=== PATIENT | female | born 1965 | race Hispanic/Latino ===

== ENCOUNTER 2018-11-13 09:04 | Inpatient (IN) ==
[2018-11-13] MEDS ORDERED: ASPIRIN PO ONE (09:24)
[2018-11-13] MEDS ORDERED: ASPIRIN PR ONE (09:24)
--- NOTE | 2018-11-13 09:49 | EKG Report ---
Test Performed on : 11/13/2018 09:13:34 AM Test Reason : CP Blood Pressure : / mmHG Vent. Rate : 066 BPM Atrial Rate : 066 BPM P-R Int : 136 ms QRS Dur : 082 ms QT Int : 424 ms P-R-T Axes : 054 021 034 degrees QTc Int : 444 ms Normal sinus rhythm. T wave abnormality, consider anterior ischemia Abnormal ECG When compared with ECG of 30-MAR-2017 17:04, No significant change was found Confirmed by Rissa SEALS, Tito Perales ([id number]) on 11/13/2018 7:29:52 PM
[2018-11-13 09:50] LABS: BASO# 0.03 X1000 (0.0-0.2); BASO% 0.5 % (0.0-0.8); EOS# 0.14 X1000 (0.0-0.7); EOS% 2.4 % (0.0-10.0); HEMATOCRIT 30.9 % (37.0-47.0); HEMOGLOBIN 9.4 g/dL (12.0-16.0); LYMPH# 2.34 X1000 (1.2-3.4); LYMPH% 39.7 % (20.5-51.1); MCHC 30.4 g/dL (33-37); MCV 72.2 FL (81-99); MONO# 0.55 X1000 (0.11-0.59); MONO% 9.3 % (1.7-9.3); MPV 8.9 FL (7.4-10.4); NEUT# 2.83 X1000 (1.4-6.5); NEUT% 48.1 % (42.2-75.2); PLT 465 X1000 (130-400); RBC 4.28 XMIL (4.2-5.4); WBC 5.89 X1000 (4.8-10.8)
[2018-11-13 09:52] LABS: INR 0.91; PROTIME 12.9 Seconds (11.0-16.0)
--- NOTE | 2018-11-13 10:02 | Diag Imaging Result Doc PS360 ---
EXAM: CHEST-2 VIEWS HISTORY: CP TECHNIQUE: Chest two views COMPARISON: None. FINDINGS: The lungs are well expanded. The heart is not enlarged. The vessels are not distended. There are no infiltrates. No pleural effusions. IMPRESSION: No acute abnormality. Electronically signed by Vitor Michele 11/13/2018 9:59 AM
[2018-11-13 10:31] LABS: AGAP 15; ALB/GLOB RATIO 1.2; ALBUMIN 4.2 g/dL (3.5-5.0); ALKALINE PHOSPHATASE 68 U/L (32-104); BUN 19 mg/dL (8-22); CALCIUM 9.2 mg/dL (8.8-10.2); CHLORIDE 99 mmol/L (98-107); COSMO 282; CREATININE 0.5 mg/dL (0.5-0.9); ESTIMATED GFR > 60; GLUCOSE 131 mg/dL (70-104); GOT 29 U/L (10-30); GPT 20 U/L (10-36); POTASSIUM 3.2 mmol/L (3.5-5.1); SODIUM 139 mmol/L (136-145); TCO2 25 mmol/L (25-35); TOTAL BILIRUBIN 0.23 mg/dL (0.20-1.00); TOTAL PROTEIN 7.8 g/dL (6.3-8.3)
[2018-11-13 10:34] LABS: CK PROFILE 488 U/L (24-173)
--- NOTE | 2018-11-13 12:01 | EKG Report ---
Test Performed on : 11/13/2018 11:37:22 AM Test Reason : repeat Blood Pressure : / mmHG Vent. Rate : 058 BPM Atrial Rate : 058 BPM P-R Int : 158 ms QRS Dur : 084 ms QT Int : 472 ms P-R-T Axes : 049 016 030 degrees QTc Int : 463 ms Sinus bradycardia. Nonspecific T wave abnormality Prolonged QT Abnormal ECG When compared with ECG of 13-NOV-2018 09:13, (Unconfirmed) T wave inversion no longer evident in Anterior leads Unconfirmed Result
[2018-11-13] MEDS ORDERED: ZOFRAN IV PRN (14:06)
[2018-11-13] MEDS ORDERED: NITROGLYCERIN SL PRN (14:06)
[2018-11-13] MEDS ORDERED: KLOR-CON PO ONE (14:17)
--- NOTE | 2018-11-13 14:41 | PROVIDER DOCUMENTATION ---
This chart was entered by Saniya Gu Scribe, acting as scribe for Gabe García MD. HPI-Chest Pain - General Chief Complaint: Chest Pain Stated Complaint: clinic sent for breathing/heart related Time Seen by Provider: 11/13/18 09:25 Source: social research assistant Allergies/Adverse Reactions: Patient Allergies Allergy/AdvReac Type Severity Reaction Status Date / Time No Known Allergies Allergy Verified 11/13/18 09:45 Home Medications: Home Medication List Medication Instructions Recorded Confirmed Last Taken Type Escitalopram Oxalate [Lexapro] 10 mg PO DAILY 11/13/18 11/13/18 Unknown History RX: Lisinopril 20 mg PO DAILY 11/13/18 11/13/18 Unknown History - History of Present Illness-CP Nature of Presenting Problem: Patient is a 53 year old female who presents with left side chest pain that radiates to left arm that has been presents for 3 days. [employer] Advanced Operator Maintainer states patient stated shortness of breath, diaphoresis, and nausea with pain. Patient denies vomiting. Location: reports: other (left side) Chest Pain Radiation: reports: arms (left) Quality of Pain: reports: sharp Severity in ED: mild Onset/Duration: 3 days ago Timing: still present, constant Modifying Factors: worse with: breathing, movement Associated Symptoms: reports: diaphoresis, nausea, shortness of breath Similar Symptoms Previously?: Yes Recently Seen Here or By Another Healthcare Provider: No Review of Systems - Adult - REVIEW OF SYSTEMS - ADULT Constitutional: reports: no symptoms reported. denies: chills, fever, fatique Eyes: reports: blurred vision. denies: decreased vision, double vision Ears, Nose, Mouth & Throat: reports: no symptoms reported Cardiovascular: reports: see HPI, chest pain, palpitations. denies: heart murmur Respiratory: reports: see HPI, shortness of breath. denies: cough, wheezing Gastrointestinal: reports: see HPI, nausea. denies: abdominal pain, diarrhea, vomiting Genitourinary: reports: no symptoms reported Musculoskeletal: reports: no symptoms reported Integumentary: reports: no symptoms reported Neurological: reports: numbness (bilateral hands. right worse than left.). denies: dizziness/vertigo, headache/migraines, paresthesia, syncope Psychiatric: reports: no symptoms reported Endocrine: reports: no symptoms reported Hematologic/Lymphatic: reports: no symptoms reported Allergic/Immunologic: reports: no symptoms reported All Other Systems: Reviewed and Negative Past History - Adult - PAST MEDICAL HISTORY-ADULT Review of Records: reports: Old Records Reviewed, Nursing Assessment Review, Medications Reviewed, Social history reviewed & non-contributory. Major Childhood Illnesses: reports: denies history Cardiovascular: reports: HTN Respiratory: reports: denies history Gastrointestinal: reports: denies history Obstetrical/Gynecological: reports: denies history Genitourinary: reports: denies history Musculoskeletal: reports: denies history Neurological: reports: denies history Psychiatric: reports: depression Endocrine/Immune: reports: denies history Other Conditions: reports: denies history - PRIOR SURGERIES/PROCEDURES Surgical/Procedure History: reports: reviewed, not pertinent - IMMUNIZATION STATUS Childhood Immunizations: See Nurse Assessment Flu Vaccine: See Nurse Assessment - FAMILY HISTORY Family History: reviewed, not pertinent - SOCIAL HISTORY Smoking: denies Substance Use: denies Physical Exam-General - PHYSICAL EXAM-ADULT Initial Vital Signs Reviewed: Yes - CONSTITUTIONAL General Appearance: alert, no apparent distress. negative: lethargic, slow to respond - EYES Eyes: PERRL/EOMI. negative: scleral icterus, sunken eyes - HEAD, EARS, NOSE, MOUTH & THROAT HENMT: normocephalic/atraumatic, moist mucous membranes, pharynx normal. negative: angioedema, hearing deficit - RESPIRATORY Respiratory: lungs clear, normal breath sounds, other (left parasternal chest wall tenderness). negative: crackles, rhonchi, wheezing - CARDIOVASCULAR Cardiovascular: normal peripheral pulses, regular rate, rhythm. negative: tachycardia, systolic murmur - GASTROINTESTINAL (ABDOMEN) Abdominal Exam: normal bowel sounds, soft, tenderness (RLQ). negative: guarding, rebound - MUSCULOSKELETAL Extremity: non-tender, normal inspection. negative: deformity, erythema, swelling - SKIN Integumentary: normal color, normal turgor, warm/dry. negative: cyanosis, ecchymosis, erythema, jaundice - NEUROLOGIC Neurologic: grossly normal. negative: aphasia, facial droop - PSYCHIATRIC Psych/Mental Status: normal mood/affect. negative: anxious, paranoid Progress - PLAN OF CARE/RESULTS Progress/Plan/Lab Results: Vital Signs - 8 hr 11/13/18 09:11 Temperature 99.1 F Pulse Rate 72 Respiratory Rate 20 Blood Pressure 147/97 O2 Sat by Pulse Oximetry 98 Laboratory Results - last 24 hr 11/13/18 11/13/18 11/13/18 09:25 09:25 09:25 WBC 5.89 RBC 4.28 Hgb 9.4 L Hct 30.9 L MCV 72.2 L MCH 22.0 L MCHC 30.4 L RDW Std Deviation 17.0 H Plt Count 465 H MPV 8.9 Immature Gran % (Auto) 0.0 Neut % (Auto) 48.1 Lymph % (Auto) 39.7 [place] % (Auto) 9.3 Eos % (Auto) 2.4 Baso % (Auto) 0.5 Immature Gran # (Auto) 0.00 Neut # (Auto) 2.83 Lymph # (Auto) 2.34 [place] # (Auto) 0.55 Eos # (Auto) 0.14 Baso # (Auto) 0.03 PT INR PTT (Actin FS) Sodium 139 Potassium 3.2 L Chloride 99 Carbon Dioxide 25 Anion Gap 15 BUN 19 Creatinine 0.5 Estimated GFR/1.73 m2 > 60 BUN/Creatinine Ratio 38 Glucose 131 H Calculated Osmolality 282 Calcium 9.2 Total Bilirubin 0.23 AST 29 ALT 20 Alkaline Phosphatase 68 Creatine Kinase 488 H Creatine Kinase Index 1.0 CK-MB (CK-2) 5.10 H Troponin T Qsq-R-[id number] Pept 29 Total Protein 7.8 Albumin 4.2 Globulin 3.6 Albumin/Globulin Ratio 1.2 11/13/18 11/13/18 11/13/18 09:25 09:25 11:45 WBC RBC Hgb Hct MCV MCH MCHC RDW Std Deviation Plt Count MPV Immature Gran % (Auto) Neut % (Auto) Lymph % (Auto) [place] % (Auto) Eos % (Auto) Baso % (Auto) Immature Gran # (Auto) Neut # (Auto) Lymph # (Auto) [place] # (Auto) Eos # (Auto) Baso # (Auto) PT 12.9 INR 0.91 PTT (Actin FS) 32.0 Sodium Potassium Chloride Carbon Dioxide Anion Gap BUN Creatinine Estimated GFR/1.73 m2 BUN/Creatinine Ratio Glucose Calculated Osmolality Calcium Total Bilirubin AST ALT Alkaline Phosphatase Creatine Kinase Creatine Kinase Index CK-MB (CK-2) Troponin T < 0.010 < 0.010 Rqs-S-Tdacjptcedp Pept Total Protein Albumin Globulin Albumin/Globulin Ratio Orders Category Date Time Status Admit - [facility] Routine AdmDCTranf 11/13/18 14:06 Active Apply Mechanical Device [QM] ORDERED Care 11/13/18 14:06 Active Cardiac Monitoring DIRECTED Care 11/13/18 09:24 Active DVT/PE Risk Assess/Protocol [QM] ORDERED Care 11/13/18 14:06 Active Notify MD if DIRECTED Care 11/13/18 14:06 Active Oxygen Therapy- ED Nursing DIRECTED Care 11/13/18 09:24 Active Saline Loc DIRECTED Care 11/13/18 14:06 Active Saline Loc NOW Care 11/13/18 09:24 Active Vital Signs Order Q 4-HR ASSESS Care 11/13/18 14:06 Active Z-Document. for Tele Applied ORDERED Care 11/13/18 14:07 Active Heart Healthy Diet Diet 11/13/18 14:07 Active NPO Diet 11/14/18 00:01 Active CHEST-2 VIEWS [RAD] Stat Exams 11/13/18 09:24 Completed MYOCARDIAL PERF SCAN, STR/REST [NM] Routine Exams 11/14/18 07:00 Ordered MYOCARDIAL PERF SCAN, STR/REST [NM] Routine Exams 11/15/18 07:00 Ordered A1C HGB W EST AVG GLUCOSE [CHEM] Routine Lab 11/14/18 06:00 Ordered BASIC METABOLIC PANEL [CHEM] Routine Lab 11/14/18 06:00 Ordered CBC WITH ELECTRONIC DIFF [HEME] Routine Lab 11/14/18 06:00 Ordered CBC WITH ELECTRONIC DIFF [HEME] Stat Lab 11/13/18 09:25 Completed CK PROFILE [SP CHEM] Q8H Lab 11/13/18 14:15 Ordered CK PROFILE [SP CHEM] Q8H Lab 11/13/18 22:15 Ordered CK PROFILE [SP CHEM] Q8H Lab 11/14/18 06:15 Ordered CK PROFILE [SP CHEM] Stat Lab 11/13/18 09:25 Completed COMPREHENSIVE METABOLIC PANEL [CHEM] Stat Lab 11/13/18 09:25 Completed FOLATE Routine Lab 11/14/18 06:00 Ordered FREE T4 Routine Lab 11/14/18 06:00 Ordered LIPID PROFILE W/CALC LDL [LIPIDS] Routine Lab 11/14/18 06:00 Ordered MAGNESIUM [CHEM] Routine Lab 11/14/18 06:00 Ordered PHOSPHORUS [CHEM] Routine Lab 11/14/18 06:00 Ordered PRO B-NATRIURETIC PEPTIDE Stat Lab 11/13/18 09:25 Completed PROTIME WITH INR [COAG] Routine Lab 11/14/18 06:00 Ordered PROTIME WITH INR [COAG] Stat Lab 11/13/18 09:25 Completed PTT [COAG] Routine Lab 11/14/18 06:00 Ordered PTT [COAG] Stat Lab 11/13/18 09:25 Completed TROPONIN T Q8H Lab 11/13/18 14:15 Ordered TROPONIN T Q8H Lab 11/13/18 22:15 Ordered TROPONIN T Q8H Lab 11/14/18 06:15 Ordered TROPONIN T Stat Lab 11/13/18 09:25 Completed TROPONIN T Stat Lab 11/13/18 11:45 Completed TSH Routine Lab 11/14/18 06:00 Ordered VITAMIN B12 Routine Lab 11/14/18 06:00 Ordered Acetaminophen [Tylenol] Med 11/13/18 14:06 Active 650 mg PO Q6H PRN PRN Aspirin Med 11/13/18 09:24 Discontinued 300 mg SC NOW ONE Aspirin Med 11/14/18 09:00 Active 325 mg PO DAILY Aspirin Med 11/13/18 09:24 Discontinued 325 mg PO NOW ONE Nitroglycerin Sl [Nitroglycerin] Med 11/13/18 14:06 Active 0.4 mg SL Q5M PRN PRN Omeprazole [Prilosec] Med 11/14/18 07:00 Active 20 mg PO DAILY@0700 Ondansetron [Zofran] Med 11/13/18 14:06 Active 4 mg IV Q4H PRN PRN Potassium Chloride E.r. [Klor-Con] Med 11/13/18 14:17 Discontinued 40 meq PO NOW ONE CP/SOB/Palp >45 yrs of Age Stat Oth 11/13/18 09:24 Ordered Oxygen Device Routine Oth 11/13/18 14:06 Active Telemetry [OM.EQ] Routine Oth 11/13/18 14:06 Active EKG [EKG] Q8H Ther 11/13/18 14:06 Ordered EKG [EKG] Q8H Ther 11/13/18 22:06 Ordered EKG [EKG] Q8H Ther 11/14/18 06:06 Ordered EKG [EKG] Routine Ther 11/14/18 07:00 Ordered EKG [EKG] Stat Ther 11/13/18 09:24 Draft EKG [EKG] Stat Ther 11/13/18 11:34 Draft Echo Spec/Color Doppler Routine Ther 11/13/18 14:06 Ordered Transfer/Admit Order [TRANSFER] Routine Transfer 11/13/18 14:19 Ordered Result Diagrams: 11/13/18 09:25 11/13/18 09:25 - EKG 1 Time of EKG reading by physician:: 09:13 EKG Read and Signed by:: Gabe García EKG Interpretation (*Must complete 3 of following elements*): Abnormal Rate: 66 Rhythm: normal sinus rhythm [place]: normal SC Interval: normal Comments: T wave abnormality, consider anterior ischemia 2 Time of EKG reading by physician:: 11:37 EKG Read and Signed by:: Gabe García EKG Interpretation (*Must complete 3 of following elements*): Abnormal Rate: 58 Rhythm: sinus bradycardia [place]: normal SC Interval: normal Comments: nonspecific T wave abnormality; prolonged QT - XRAY 1 XRAY Study: Chest Impression: See EMR Report (EXAM: CHEST-2 VIEWS HISTORY: CP TECHNIQUE: Chest two views COMPARISON: None. FINDINGS: The lungs are well expanded. The heart is not enlarged. The vessels are not distended. There are no infiltrates. No pleural effusions. IMPRESSION: No acute abnormality. Electronically signed by Vitor Michele 11/13/2018 9:59 AM 11/13/1859 Interpreting Physician: Vitor Michele MD Dictated Date/Time: 11/13/18 0959 cc: Gabe García MD; None,PCP) - CONSULTS/PCP/HOSPITALIST Notification #1 *Consult/PCP/Hospitalist*: CLIFFORD Arroyo for Hospitalist Time Discussed: 14:01 Reason/Comments: Dr. García consulted with Dina about patient. Consult Disposition: Will see in ED, Admit Departure - Departure Date of Disposition Decision: 11/13/18 Time of Disposition Decision: 14:02 DIAGNOSIS: Chest pain Disposition: ADMITTED INPATIENT 09 Certified Medical Emergency: Emergent Condition: Stable - Critical Care Note This patient required my direct & personal management of CC.: No Attestation - Physician/ SANAM Attestation Patient care was provided by Advanced Practice Provider:: No The physician spent face to face time with patient:: Yes Advanced Practice Provider documentation review:: Supervising physician onsite and consulted in the evaluation and care of this patient. The physician did have a face to face encounter with the patient. This chart was documented by the indicated scribe, (Saniya Gu Scribe) and accurately reflects the services I performed and decisions made by me, Gabe García MD, as attested by the provider's signature.
[2018-11-13 16:58] LABS: CK INDEX 1.1 (0.0-2.5); CK-MB 4.69 ng/mL (0.0-5.0)
[2018-11-13] MEDS: TYLENOL PO PRN (18:38)
[2018-11-13] MEDS: AMBIEN PO SCH (21:47)
[2018-11-13 23:01] LABS: CK INDEX 1.2 (0.0-2.5); CK-MB 4.84 ng/mL (0.0-5.0)
[2018-11-14] MEDS: PRILOSEC PO SCH (06:11)
[2018-11-14 06:28] LABS: INR 0.91; PTT 30.1 Seconds (22.3-41.8)
[2018-11-14 06:58] LABS: AGAP 7; BUN 18 mg/dL (8-22); CALCIUM 9.4 mg/dL (8.8-10.2); CHLORIDE 101 mmol/L (98-107); CHOLESTEROL 193 mg/dL (0-200); COSMO 279; CREATININE 0.6 mg/dL (0.5-0.9); ESTIMATED GFR > 60; GLUCOSE 99 mg/dL (70-104); HDL 62 mg/dL (45-65); MAGNESIUM 2.1 mg/dL (1.5-2.7); PHOSPHORUS 3.5 mg/dL (2.7-4.5); POTASSIUM 3.7 mmol/L (3.5-5.1); SODIUM 139 mmol/L (136-145); TCO2 31 mmol/L (25-35); TOTAL IRON 19 ug/dL (49-151); TRIGLYCERIDES 86 mg/dL (35-135); VLDL 17 mg/dL
[2018-11-14 06:59] LABS: LDL 114 mg/dL
[2018-11-14 07:02] LABS: BASO# 0.03 X1000 (0.0-0.2); BASO% 0.6 % (0.0-0.8); EOS% 3.9 % (0.0-10.0); HEMATOCRIT 32.8 % (37.0-47.0); HEMOGLOBIN 9.9 g/dL (12.0-16.0); LYMPH# 2.11 X1000 (1.2-3.4); LYMPH% 40.8 % (20.5-51.1); MCHC 30.2 g/dL (33-37); MCV 72.7 FL (81-99); MONO# 0.47 X1000 (0.11-0.59); MONO% 9.1 % (1.7-9.3); MPV 9.3 FL (7.4-10.4); NEUT# 2.36 X1000 (1.4-6.5); NEUT% 45.6 % (42.2-75.2); PLT 473 X1000 (130-400); RBC 4.51 XMIL (4.2-5.4); RDW 17.1 % (11.5-14.5); WBC 5.17 X1000 (4.8-10.8)
--- NOTE | 2018-11-14 07:07 | EKG Report ---
Test Performed on : 11/14/2018 06:46:42 AM Test Reason : chest pain Blood Pressure : / mmHG Vent. Rate : 061 BPM Atrial Rate : 061 BPM P-R Int : 154 ms QRS Dur : 082 ms QT Int : 424 ms P-R-T Axes : 064 036 040 degrees QTc Int : 426 ms Normal sinus rhythm. Normal ECG When compared with ECG of 13-NOV-2018 11:37, (Unconfirmed) No significant change was found Confirmed by Rissa SEALS, Tito Perales ([id number]) on 11/14/2018 3:27:39 PM
[2018-11-14 07:23] LABS: BASO 1 % (0-1); EOS 8 % (1-10); LYMPHS 24 % (21-51); MONO 9 % (1-9); SEGS 58 % (42-75)
[2018-11-14 07:25] LABS: HYPOCHROM 1+; MICROCYTOSIS 1+
[2018-11-14 07:31] LABS: HEMOGLOBIN A1C 5.8 % (4.8-6.0)
[2018-11-14 07:33] LABS: FREE T4 1.17 ng/dL (0.93-1.70); TSH 0.69 uIUmL (0.27-4.20)
[2018-11-14 07:38] LABS: CK INDEX 1.2 (0.0-2.5); CK-MB 4.23 ng/mL (0.0-5.0)
[2018-11-14] MEDS ORDERED: LEXISCAN ONE (08:52)
--- NOTE | 2018-11-14 10:28 | HISTORY AND PHYSICAL ---
PRIMARY CARE PHYSICIAN: None. CHIEF COMPLAINT: Chest pain. HISTORY OF PRESENT ILLNESS: This is a 53 -year-old female who presents to the emergency room with left sided chest pain that radiates down the left arm for 3 days. She states she does have some shortness of breath and some diaphoresis and nausea with this chest pain. She states this is a constant chest pain. She does not have any vomiting with this chest pain. She does have lots of shortness of breath with this chest pain. Patient speaks mostly Danish, does not speak any Turkish. Most of the history is obtained from the emergency room record where they used an shipwright supervisor to obtain history. Patient does not complain of pain anywhere else besides in the chest and left arm region. She does not complain of any back pain. At this present time patient states that she is having some pain in her arm and her chest area and she is complaining of a headache at this present time. PAST MEDICAL HISTORY: 1. Depression. 2. Hypertension. 3. Pelvic ultrasound from 09/04/2017 for some excessive bleeding that was negative. PAST SURGICAL HISTORY: Unable to be obtained at this time. FAMILY HISTORY: Not significant. SOCIAL HISTORY: Patient states that she does live here in [place]. Denies any alcohol, tobacco or illicit drug abuse. ALLERGIES: No known drug allergies. MEDICATIONS: 1. Lexapro 10 mg p.o. daily. 2. Lisinopril 20 mg p.o. daily. LABS AND DIAGNOSTICS: White blood cell count 5.89, hemoglobin 9.4, hematocrit 30.9. MCV 72.2, MCH 22.0, MCHC 30.4. RDW standard deviation is 17.0. Platelet count is 465,000. PT 12.9, INR 0.9. PTT 32.0. GFR is greater than 60. Glucose is 131. Calcium is 9.2. Bilirubin is 0.23. AST 29, ALT 20, alkaline phosphatase is 68. Creatinine kinase is 488. CK-MB 5.10, troponin is less than 0.01. Pro-BNP is 29. EKG done in the emergency room shows sinus bradycardia with a nonspecific T-wave abnormality and prolonged QT with a rate of 58 beats per minute. Chest x-ray shows no acute abnormality. REVIEW OF SYSTEMS: A 12 point review of systems was obtained and all is negative except what is stated above in the history of present illness. PHYSICAL EXAMINATION: VITAL SIGNS: Temperature 98.0 degrees, heart rate 64, respiratory rate is 18, blood pressure is 154/90, O2 saturation is 100% on room air. Weight is 134. Height is 5 feet. GENERAL: This is a well developed, well nourished 53 -year-old female in no acute distress, lying on an emergency room stretcher. HEENT: Atraumatic, normocephalic. Pupils equal, round, reactive to light. Mucous membranes are moist with no dentition. NECK: Supple, no lymphadenopathy. Trachea is midline. No JVD noted. CV: No murmurs, rubs or gallops. Regular rate and rhythm. RESPIRATORY: Lung sounds are clear. Equal chest excursion. Respirations are nonlabored. No accessory muscle usage. GI: Abdomen is soft, nontender, nondistended. Bowel sounds are present. NEURO: Alert, awake, oriented x 4. Cranial nerves intact. Follows all commands. MUSCULOSKELETAL: Full distal strength noted. No abnormalities. No deformities. EXTREMITIES: No cyanosis, clubbing or edema. DP and PT pulses are present. SKIN: Warm, dry, intact. No rashes or bruises noted. ASSESSMENT: 1. Chest pain. Rule out acute coronary syndrome/angina. 2. Hypertension. 3. Anemia. 4. Hypokalemia. PLAN: 1. We will admit this patient to the medical floor. 2. We will place the patient on telemetry. 3. We will restart her home medications. 4. We will repeat labs in the morning. 5. We will do serial CK and troponin and EKG's. 6. We will replace the potassium and recheck in the morning. 7. We will do a stress test in the morning and echo in the morning. 8. Place this patient on Healthy Heart Diet and place her NPO after midnight for stress test. 9. Control the patient's chest pain with p.r.n. medications. 10.Do a full anemia work up. Dictated by CLIFFORD Evans for Glenn Vasquez MD Addendum: Patient seen and examined by myself. Agree with CLIFFORD note. It reflects my assessment and plan. Patient is being admitted to hospital for chest pain. Will order an echocardiogram, Lexiscan test, trend troponins and will go from there. Will continue with home medications for hypertension. cc: Glenn Vasquez MD MTDD
[2018-11-14] MEDS: PRINIVIL PO SCH (12:05)
[2018-11-14] MEDS: LEXAPRO PO SCH (12:05)
[2018-11-14] MEDS: ASPIRIN PO SCH (12:05)
--- NOTE | 2018-11-14 16:05 | PROGRESS NOTE ---
DATE: 11/14/2018 SUBJECTIVE: The patient reports feeling fine. Chest pain is almost gone. OBJECTIVE: Vital Signs: Temperature 98.5, heart rate 62, respiratory rate 16, blood pressure 134/70, O2 saturation 100% on room air. General: This is a 53-year-old, male, lying in bed, in no acute distress. Cardiovascular: S1, S2 heard. No murmurs, gallops, or rubs. Regular rate and rhythm. Respiratory: Clear bilaterally to auscultation. No work of breathing or using accessory muscles. Abdomen: Soft. Nontender to palpation. Bowel sounds present. No organomegaly. Extremities: No clubbing, cyanosis, or edema. Peripheral pulses present in both legs. Neurological exam: The patient is alert and oriented x3. Moves 4 extremities. LABORATORY DATA: Reviewed and 3 sets of troponins are negative. ASSESSMENT AND PLAN: 1. Chest pain, rule out acute coronary syndrome. At this point, the patient has had an echo and also Lexiscan stress test which has not been read yet. We have checked troponins 3 times and those are normal, as well as CK/MB. I think at this point, even those exams mentioned above are negative, either at the end of the day or tomorrow morning, patient can be discharged. 2. Hypertension. Blood pressure is under control. We will continue with the same management. 3. Anemia of chronic disease. Stable. We will continue with same management. 4. Hypokalemia, resolved. cc: Glenn Vasquez MD
--- NOTE | 2018-11-14 16:46 | Diag Imaging Result Document ---
PROCEDURE NAME: MYOCARDIAL PERF SCAN, STR/REST - 11/14/2018 SUMMARY: The patient was administered 10.3 mCi of technetium-99m sestamibi, after which resting cardiac images were obtained. Patient was subsequently administered Lexiscan 0.4 mg intravenously, after which the heart increased from 70 beats per minute to 93 beats per minute. The blood pressure went from 179/85 to 154/85. With Lexiscan, the patient denied chest discomfort. Following the administration of Lexiscan, the patient was administered 31.8 mCi of technetium-99m sestamibi, after which gated stress cardiac images were obtained. Baseline ECG demonstrated sinus rhythm. With Lexiscan, there were no diagnostic ST-segment changes. SPECT images were reconstructed in the short, horizontal, and vertical long axis. Review of these images demonstrated no scintigraphic evidence of inducible myocardial ischemia or prior infarct. Gated images demonstrated a calculated left ventricular ejection fraction of 56% with symmetrical wall motion/thickening. CONCLUSIONS: 1. Adequate response to Lexiscan. 2. Clinically negative for chest pain. 3. Electrocardiographically negative for Lexiscan-induced myocardial ischemia. 4. Lexiscan sestamibi images demonstrate no scintigraphic evidence of inducible myocardial ischemia. Normal left ventricular systolic function demonstrated. cc: Anibal Murdock MD
[2018-11-14] MEDS: AMBIEN PO SCH (21:02)
--- NOTE | 2018-11-14 22:34 | ECHO REPORT ---
ORDER DATE: 11/13/2018 MEASUREMENTS: Septal thickness 0.9. Left ventricular internal diameter diastole 4.9. Left ventricular posterior wall thickness 0.9. Aortic root 3.0, left atrium 2.8. SUMMARY: 1. Fair quality study. 2. Aortic valve is not well imaged but appears to be probably trileaflet. Aortic valve opens adequately on 2-dimensional images. Peak gradient across aortic valve is 21 mmHg and appears to be increased due to dynamic left ventricular function. Mitral and tricuspid valves are without evidence of structural abnormality while pulmonic valve is not well demonstrated. There is trace mitral regurgitation and trace tricuspid regurgitation. Aortic root is normal in size. 3. Normal left ventricular dimensions demonstrated. Estimated left ejection fraction appears to be at least 60%. No regional wall motion abnormalities evident. Left atrium, right atrium, right ventricle normal in size with grossly preserved right ventricular systolic function. 4. No pericardial effusion. 5. Appearance of inferior vena cava suggests normal central venous pressure. CONCLUSIONS: 1. Aortic valve probably trileaflet and opens adequately on 2-dimensional images. 2. Trace mitral regurgitation and trace tricuspid regurgitation. 3. Normal left ventricular systolic function without wall motion abnormality evident. cc: Anibal Murdock MD
[2018-11-15] MEDS: PRILOSEC PO SCH (06:06)
[2018-11-15 07:59] VITALS: BP 134/85
[2018-11-15] MEDS: ASPIRIN PO SCH (08:49)
[2018-11-15] MEDS: LEXAPRO PO SCH (08:49)
[2018-11-15] MEDS: PRINIVIL PO SCH (08:49)
[2018-11-15] MEDS: TYLENOL PO PRN (08:50)
--- NOTE | 2018-11-16 09:13 | DISCHARGE SUMMARY ---
ADMISSION DATE: 11/13/2018 DISCHARGE DATE: 11/15/2018 PRIMARY CARE PHYSICIAN: None. ADMITTING DIAGNOSES: 1. Chest pain, rule out acute coronary syndrome/angina. 2. Hypertension. 3. Anemia. 4. Hypokalemia. DISCHARGE DIAGNOSES: 1. Chest pain. 2. Hypertension. 3. Anemia. HOSPITAL COURSE: This is a 53-year-old female, who presented to the emergency room with the sudden chest pain that radiated down her left arm for 3 days. She stated that she did have some shortness of breath, diaphoresis and nausea with the chest pain. She stated the pain was a constant pain. She did not have any vomiting. She presented complaining of some dyspnea. CK and troponin's were negative. EKG was negative. The patient did show some anemia on initial laboratory findings. Potassium initially was 3.2 and replaced initially. Iron level was low. Vitamin B12 was high. Stress test was done on the patient by Dr. Murdock, and was negative. It showed an EF of 56%. EKG shows normal sinus rhythm at 66 beats with no abnormalities. Chest pain has been ruled out for any cardiac findings. Anemia has been showed to be anemia of chronic disease for possible iron deficiency anemia. The patient is being discharged home today. The patient will resume her normal diet. DISCHARGE MEDICATIONS: 1. Lexapro 10 mg p.o. daily. 2. Lisinopril 20 mg p.o. daily. 3. Aspirin 325 mg p.o. daily. FOLLOW UP: Patient the patient is to follow up with her primary care physician. Dictated by CLIFFORD Evans for Glenn Vasquez MD cc: Glenn Vasquez MD
== END 2018-11-15 10:54 | disposition home or self-care (01) | DRG 313 ==
LOC: 4N 09:04 → ED 09:04 → OBSVTOIN 14:30
PROVIDERS: ATTEND Internal Medicine
CPT/HCPCS: 71020; 71046; 78452; 80048; 80053; 80061; 82550; 82553; 82607; 82746; 83036; 83540; 83735; 83880; 84100; 84439; 84443; 84484; 85025; 85610; 85730; 93005; 93010; 93017; 93306; 94761; A9270; A9500; J2785